=== PATIENT | female | born 1970 | race Caucasian/White ===

== ENCOUNTER 2022-08-06 13:59 | Outpatient (CLI) | payer BC, SELFPAY ==
[2022-08-06 14:30] LABS: Albumin* 4.3 g/dL (3.3-5.0)
[2022-08-06 14:31] LABS: Chloride* 104 mmol/L (96-114); Potassium* 4.4 mmol/L (3.6-5.1); Sodium* 139 mmol/L (135-149)
[2022-08-06 14:33] LABS: Aspartate Amino Transferase* 28 U/L (12-35); Bilirubin Total* 0.6 mg/dL (0.1-1.5); Blood Urea Nitrogen* 8 mg/dL (7-30); Carbon Dioxide* 29 mmol/L (20-32); Cholesterol* 210 mg/dL (90-199); Creatinine* 0.6 mg/dL (0.5-1.5); Estimated Glomerular Filt Rate 109 ml/min; Total Protein* 6.8 g/dL (6.0-8.3)
[2022-08-06 14:34] LABS: Alanine Aminotransferase* 26 U/L (4-35); Alkaline Phosphatase* 83 U/L (40-150); Calcium* 9.4 mg/dL (8.4-10.6); Glucose* 94 mg/dL (60-115); HDL Cholesterol* 98 mg/dL (>=50); LDL Cholesterol Calculated 100 mg/dL (<100); Triglycerides* 60 mg/dL (40-149)
== END 2022-08-06 14:00 | disposition home or self-care (01) ==
PROVIDERS: PCP Physician Assistant Medical; Visit Provider Physician Assistant Medical
DX: Z01.419 Encounter for gynecological examination (general) (routine) without abnormal findings (principal); E55.9 Vitamin D deficiency, unspecified; D64.9 Anemia, unspecified; F41.9 Anxiety disorder, unspecified
CPT/HCPCS: 80053; 80061

== ENCOUNTER 2022-08-14 10:33 | Outpatient (CLI) | payer BC, SELFPAY ==
[2022-08-14 16:28] LABS: Iron* 139 ug/dL (37-170)
[2022-08-14 16:37] LABS: Percent Iron Saturation 28 % (20-50); Total Iron Binding Capacity 497 ug/dL (265-497)
[2022-08-14 16:49] LABS: Vitamin D 25 Hydroxy* 44 ng/mL (30-80)
[2022-08-14 17:22] LABS: Vitamin B12* 613 pg/mL (243-894)
[2022-08-16 17:05] LABS: Folate, Serum 10.9 ng/mL (>=5.9)
== END 2022-08-14 10:34 | disposition home or self-care (01) ==
PROVIDERS: PCP Physician Assistant Medical; Visit Provider Physician Assistant Medical
DX: Z01.419 Encounter for gynecological examination (general) (routine) without abnormal findings (principal); D64.9 Anemia, unspecified; E55.9 Vitamin D deficiency, unspecified; F41.9 Anxiety disorder, unspecified
CPT/HCPCS: 82306; 82607; 82746; 83540; 83550

== ENCOUNTER 2023-08-04 09:04 | Outpatient (CLI) | payer BC, SELFPAY | END 2023-08-04 09:05 | disposition home or self-care (01) | LOC: NFLDREF 08-05 12:19 | PROVIDERS: PCP Physician Assistant Medical; Referring Provider Physician Assistant Medical; Visit Provider Physician Assistant Medical | DX: Z13.220 Encounter for screening for lipoid disorders (principal); Z13.228 Encounter for screening for other metabolic disorders | CPT/HCPCS: 80053; 80061 ==

== ENCOUNTER 2023-08-12 13:15 | Outpatient (CLI) | payer BC, SELFPAY | END 2023-08-12 13:16 | disposition home or self-care (01) | LOC: NFLDREF 08-13 09:16 | PROVIDERS: PCP Physician Assistant Medical; Referring Provider Physician Assistant Medical; Visit Provider Physician Assistant Medical | DX: E87.6 Hypokalemia (principal); R79.89 Other specified abnormal findings of blood chemistry | CPT/HCPCS: 80053; 86703; 86803 ==

== ENCOUNTER 2023-10-09 11:45 | Outpatient (RCR) | payer BC, SELFPAY | END 2023-12-09 14:17 | disposition home or self-care (01) | PROVIDERS: PCP Physician Assistant Medical; Visit Provider Physician Assistant Medical | DX: H81.90 Unspecified disorder of vestibular function, unspecified ear (principal); R26.89 Other abnormalities of gait and mobility; Z51.89 Encounter for other specified aftercare | CPT/HCPCS: 97112; 97116; 97140; 97162 ==

== ENCOUNTER 2025-03-28 13:58 | Outpatient (CLI) | payer BC, SELFPAY | END 2025-03-28 13:59 | disposition home or self-care (01) | LOC: LKVREF 13:59 | PROVIDERS: PCP Physician Assistant Medical | DX: Z13.29 Encounter for screening for other suspected endocrine disorder (principal); R53.83 Other fatigue | CPT/HCPCS: 84443 ==

== ENCOUNTER 2025-03-31 11:51 | Outpatient (CLI) | payer BC, SELFPAY | END 2025-03-31 11:52 | disposition home or self-care (01) | LOC: LKVREF 11:52 | PROVIDERS: PCP Physician Assistant Medical; Visit Provider Physician Assistant Medical | DX: R79.89 Other specified abnormal findings of blood chemistry (principal); D64.9 Anemia, unspecified; E55.9 Vitamin D deficiency, unspecified; E87.6 Hypokalemia; R20.0 Anesthesia of skin | CPT/HCPCS: 80053; 80061; 82306; 82533; 82607; 82728; 82746; 83540; 83550 ==